=== PATIENT | female | born 1965 | race Two or more races ===

== ENCOUNTER → 2024-08-20 | Outpatient (CLI) | payer MEDICAID ==
[2024-08-20] VITALS (8 sets, daily range): BP systolic 97–112; BP diastolic 55–72; PULSE 59–77; RESP 11–14; TEMP 98.1; O2SAT 95–96
[~2024-08-20] MED LIST: MIDAZOLAM HCL 2MG/2ML 2ml VIAL (1mg/ml) IV ONE; fentaNYL CITRATE 100 MCG/2 ML VL IV ONE
[2024-08-20] MEDS: LIDOCAINE 2%HCL (LOCAL ANESTH.) INJ 10ml MDV ONE (08:50)
[2024-08-20] MEDS: GELATIN 1 SPONGE SIZE 50 TOP ONE (09:13)
--- NOTE | 2024-08-20 10:07 | DVH ---
CT CT GUIDANCE FOR NEEDLE PLACEME, HISTORY: LIVER CYST COMPARISON: None PROCEDURE: Informed consent was obtained. The patient was placed supine on the CT scanner. IV sedatio n was administered. The fluid collection was localized under USCT scan and the overlying skin prepped with chlorhexidine which was allowed to dry and draped in the usual sterile fashion and infiltrated with Xylocaine. Time out was performed. With CT guidance, a 19-gauge centesis needle catheter was adv anced via trans-peritoneal approach into the liver cyst. Following aspiration of a small amount of fl uid. Approximately 130 cc of clear serous was aspirated, with specimen sent for appropriate laborator y/cytology/laboratory and cytology evaluation. The catheter was then removed. No immediate complicati on was noted. Post procedure CT imaging through the drain site was obtained. DLP = 814 mGy-cm. SEDATION: Dr. Bacilio Field was personally responsible for the administration of moderate sedation during the procedure performed, including the use of an independent trained observer who had no other duties during the procedure. The drugs utilized were IV fentanyl and versed (see nursing log for details). The total time of supervision by the attending physician was approximately 30 minutes. FINDINGS: Limited CT scan of through the abdomen demonstrates a medium sized fluid collection in the liver. Collection appears simple. Post procedure scan shows the cyst is decreased in size. No immedi ate complication was identified. IMPRESSION: Liver cyst aspiration with 130 mL removed PLAN: 2 hours bed rest
== END | disposition home or self-care (01) ==
LOC: XYW 08:31
PROVIDERS: ATTEND Internal Medicine Gastroenterology
DX: K76.89 Other specified diseases of liver (principal); E78.5 Hyperlipidemia, unspecified; Z98.890 Other specified postprocedural states; Z80.0 Family history of malignant neoplasm of digestive organs; Z79.899 Other long term (current) drug therapy; Z88.1 Allergy status to other antibiotic agents
CPT/HCPCS: 49405; 74150; 87205; 88104; 88305; C1729; J2003; 10005; 76942; 77012; 99152; 99153